=== PATIENT | female | born 1985 | race Caucasian/White ===

== ENCOUNTER 2020-06-03 15:58 | Emergency (ER) | payer OTHER ==
[2020-06-03 16:50] VITALS: BP 129/76; PULSE 70; O2SAT 99
[2020-06-03] MEDS ORDERED: TORAdol 30 mg Injection IM ONE (17:05)
[2020-06-03] MEDS ORDERED: Augmentin 875-125 Tablet PO STA (17:06)
[2020-06-03] MEDS ORDERED: TORAdol 30 mg Injection ONE (17:07)
[2020-06-03] MEDS ORDERED: Augmentin 875-125 Tablet ONE (17:07)
--- NOTE | 2020-06-03 17:13 | ERPHSYRPT ---
- History of Present Illness Time Seen by Provider: 06/03/20 16:50 Source: patient Exam Limitations: no limitations Patient Subjective Stated Complaint: pt states "I have a bad tooth and it is causing me to have a low grade fever and I have a dentist appointment but I just cannot take it anymore" Triage Nursing Assessment: Pt presented alert and oriented X 3, skin wpd pt ambulates with an upright steady gait, able to speak in clear full sentencs pt has lower left molar cavity, slight swelling noted to left lower jaw Physician History: Patient is a 34-year-old female presents to our ED for evaluation of dental pain. Patient has pain at her left back molar. Patient has been experiencing this pain for several days. Pain is getting worse. No trauma no fever. No nausea or vomiting. No headache. Symptoms are mild to moderate in intensity. No specific worsening improving factors. Patient voices no other complaints or concerns at this time. Timing/Duration: yesterday Severity: moderate Modifying Factors: Improves With: other (Patient took a [place] pill today which alleviated her symptoms somewhat.) Associated Symptoms: denies symptoms Allergies/Adverse Reactions: No Known Drug Allergies Allergy (Verified 06/03/20 16:50) Home Medications: Multivitamin [Multi Vitamin Daily] 1 each PO DAILY 03/10/13 [History] Hx Tetanus, Diphtheria Vaccination/Date Given: No Hx Influenza Vaccination/Date Given: No Hx Pneumococcal Vaccination/Date Given: No Immunizations Up to Date: Yes Travel Risk - International Travel Have you traveled outside of the country in past 3 weeks: No - Coronavirus Screening Are you exhibiting any of the following symptoms?: No Close contact with a COVID-19 positive Pt in past 14-21 Days: No - Vaccine Status Have you recieved a Covid-19 vaccination: No - Review of Systems Constitutional: No Symptoms, No Fever, No Chills Eyes: No Symptoms Ears, Nose, & Throat: No Symptoms Respiratory: No Symptoms, No Cough, No Dyspnea Cardiac: No Symptoms, No Chest Pain, No Edema, No Syncope Abdominal/Gastrointestinal: No Symptoms, No Abdominal Pain, No Nausea, No Vomiting, No Diarrhea Genitourinary Symptoms: No Symptoms, No Dysuria Musculoskeletal: No Symptoms, No Back Pain, No Neck Pain Skin: No Symptoms, No Rash Neurological: No Symptoms, No Dizziness, No Focal Weakness, No Sensory Changes Psychological: No Symptoms Endocrine: No Symptoms Hematologic/Lymphatic: No Symptoms Immunological/Allergic: No Symptoms All Other Systems: Reviewed and Negative - Past Medical History Pertinent Past Medical History: Yes Neurological History: No Pertinent History ENT History: No Pertinent History Cardiac History: No Pertinent History Respiratory History: No Pertinent History Endocrine Medical History: No Pertinent History Musculoskeletal History: No Pertinent History GI Medical History: No Pertinent History History: No Pertinent History Psycho-Social History: No Pertinent History Female Reproductive Disorders: No Pertinent History - Past Surgical History Past Surgical History: No Neuro Surgical History: No Pertinent History Cardiac: No Pertinent History Respiratory: No Pertinent History Gastrointestinal: No Pertinent History Genitourinary: No Pertinent History Musculoskeletal: No Pertinent History Female Surgical History: No Pertinent History - Social History Smoking Status: Current every day smoker How long have you smoked: years Exposure to second hand smoke: Yes Drug Use: none Patient Lives Alone: Yes - Female History Hx Last Menstrual Period: 04/09/2020 Hx Now: No - Nursing Vital Signs Nursing Vital Signs: Initial Vital Signs Temperature 97.7 F 06/03/20 16:44 Pulse Rate 70 06/03/20 16:44 Respiratory Rate 18 06/03/20 16:44 Blood Pressure 129/76 06/03/20 16:44 O2 Sat by Pulse Oximetry 99 06/03/20 16:44 Pain Scale Pain Intensity 4 - Physical Exam General Appearance: no apparent distress, alert Eye Exam: PERRL/EOMI, eyes nml inspection Ears, Nose, Throat Exam: normal ENT inspection, TMs normal, pharynx normal, moist mucous membranes, other (Tooth #16 is tender. The adjacent gingiva is irritated and tender as well. It appears as patient experiencing an early abscess. The airway is patent. No airway compromise. Remaining intraoral exam is within normal limits. Uvula midline) Neck Exam: normal inspection, non-tender, supple, full range of motion Respiratory Exam: normal breath sounds, lungs clear, No respiratory distress Cardiovascular Exam: regular rate/rhythm, normal heart sounds, normal peripheral pulses Gastrointestinal/Abdomen Exam: soft, normal bowel sounds, No tenderness, No mass Back Exam: normal inspection, normal range of motion, No CVA tenderness, No vertebral tenderness Extremity Exam: normal inspection, normal range of motion, pelvis stable Neurologic Exam: alert, oriented x 3, cooperative, normal mood/affect, nml cerebellar function, nml station & gait, sensation nml, No motor deficits Skin Exam: normal color, warm, dry, No rash Lymphatic Exam: No adenopathy SpO2 Interpretation: normal SpO2: 99 O2 Delivery: Room Air - Course Nursing assessment & vital signs reviewed: No Ordered Tests: Medication Summary Discontinued Medications Generic Name Dose Route Start Last Admin Trade Name [place] PRN Reason Stop Dose Admin Amoxicillin/Clavulanate Potassium 875 mg 06/03/20 17:06 Augmentin 875-125 Tablet PO 06/03/20 17:07 STAT STA Ketorolac Tromethamine 60 mg 06/03/20 17:05 Toradol 30 Mg Injection IM 06/03/20 17:06 STAT ONE - Progress Progress: improved Progress Note: Patient received a dose of Toradol IM and Augmentin antibiotic orally. Patient improved. Patient currently has an appointment scheduled with her dentist. We will discharge home with a prescription of Toradol and Augmentin. Patient agrees to follow-up with her dentist as scheduled. Patient voices no other complaints concerns at this time. Patient declined a test. Patient states she is "fixed". 06/03/20 17:11 Counseled pt/family regarding: diagnosis, need for follow-up - Departure Departure Disposition: Home Clinical Impression: Pain, dental, Dental abscess Condition: Stable Critical Care Time: No Referrals: JULES JOSE [Primary Care Provider] - Additional Instructions: Discharge/Care Plan GOPI TYLER was seen on 06/03/20 in the Emergency Room. The patient was counseled regarding Diagnosis,Lab results, Imaging studies, need for follow up and when to return to the Emergency Room. Prescriptions given: Discharge Note I have spoken with the patient and/or caregivers. I have explained the patient's condition, diagnosis and treatment plan based on the information available to me at this time. I have answered the patient's and/or caregiver's questions and addressed any concerns. The patient and/or caregivers have as good understanding of the patient's diagnosis, condition and treatment plan as can be expected at this point. The vital signs have been stable. The patient's condition is stable and appropriate for discharge from the emergency department. The patient will pursue further outpatient evaluation with the primary care phys ician or other designated or consulting physician as outlined in the discharge instructions. The patient and/or caregivers are agreeable to this plan of care and follow-up instructions have been explained in detail. The patient and/or caregivers have received these instruction. The patient/and or caregivers are aware that any significant change in condition or worsening of symptoms should prompt an immediate return to this or the closest emergency department or call 911.
== END 2020-06-03 17:26 | disposition home or self-care (01) ==
LOC: ED 15:58
DX: K08.89 Other specified disorders of teeth and supporting structures (principal); K04.7 Periapical abscess without sinus
CPT/HCPCS: 96372; 99283; J1885; A9270-GY

== ENCOUNTER 2020-07-24 04:35 | Emergency (ER) | payer OTHER | END 2020-07-24 04:57 | LOC: ED 04:35 | DX: Z53.9 Procedure and treatment not carried out, unspecified reason (principal) ==

== ENCOUNTER 2024-04-28 15:02 | Emergency (ER) | payer OTHER ==
--- NOTE | 2024-04-28 15:08 | ERPHSYRPT ---
- History of Present Illness Time Seen by Provider: 04/28/24 15:08 Source: patient, family Exam Limitations: no limitations Physician History: This is a 38-year-old white female patient arrives by private vehicle and is a patient Dr. Holden with cough for 2 weeks. She denies chest pain and she denies shortness of breath. Patient's room air oxygen saturation levels 99 to 100%. Patient takes no medications chronically and she has no known drug allergies. The patient is concerned she might have an upper respiratory infection. She has not had a fever. Timing/Duration: week(s) (2) Cough Quality/Degree: mild, productive cough (Yellowish and greenish at times) Possible Cause: occasional episodes Modifying Factors: Improves With: coughing Associated Symptoms: cough, nasal congestion, nasal drainage, wheezing, No fever, No chest pain/soreness, No shortness of breath Allergies/Adverse Reactions: No Known Drug Allergies Allergy (Verified 04/28/24 15:38) Hx Tetanus, Diphtheria Vaccination/Date Given: No Hx Influenza Vaccination/Date Given: No Hx Pneumococcal Vaccination/Date Given: No Travel Risk - International Travel Have you traveled outside of the country in past 3 weeks: No - Emerging Infectious Disease Are you exhibiting symptoms associated with any current EIDs: Yes Symptoms: Cough: New Onset - Review of Systems Constitutional: No Symptoms Eyes: No Symptoms Ears, Nose, & Throat: Nose Congestion, Nose Discharge Respiratory: Cough, No Dyspnea Cardiac: No Chest Pain Abdominal/Gastrointestinal: No Symptoms Genitourinary Symptoms: No Symptoms Musculoskeletal: No Symptoms Skin: No Symptoms Neurological: No Symptoms Psychological: No Symptoms Endocrine: No Symptoms Hematologic/Lymphatic: No Symptoms Immunological/Allergic: No Symptoms All Other Systems: Reviewed and Negative - Past Medical History Neurological History: No Pertinent History Cardiac History: No Pertinent History Respiratory History: No Pertinent History Endocrine Medical History: No Pertinent History Musculoskeletal History: No Pertinent History Other Medical History: PT NOTES TINGLING THAT STARTS IN THE L LE. STANDING UP AND TAKING PRESSURE OFF THE L LE WILL HELP THE PAIN TO GO AWAY. SHE NOTES SOME PAIN IN THE HANDS. - Past Surgical History Past Surgical History: No Neuro Surgical History: No Pertinent History Cardiac: No Pertinent History Respiratory: No Pertinent History Gastrointestinal: No Pertinent History Genitourinary: No Pertinent History Musculoskeletal: No Pertinent History Female Surgical History: No Pertinent History - Social History Smoking Status: Current every day smoker How long have you smoked: years Exposure to second hand smoke: Yes Drug Use: none Patient Lives Alone: Yes - Nursing Vital Signs Nursing Vital Signs: Initial Vital Signs Temperature 96.9 F 04/28/24 15:37 Pulse Rate 110 H 04/28/24 15:37 Respiratory Rate 16 04/28/24 15:37 Blood Pressure 125/85 04/28/24 15:37 O2 Sat by Pulse Oximetry 97 04/28/24 15:37 Pain Scale Pain Intensity 0 - Physical Exam General Appearance: no apparent distress, alert, anxiety Eye Exam: PERRL/EOMI, eyes nml inspection Ears, Nose, Throat Exam: normal ENT inspection, moist mucous membranes Neck Exam: normal inspection, non-tender, supple, full range of motion Respiratory Exam: wheezing (Mild right side expiratory wheezing), No chest tenderness Cardiovascular Exam: normal heart sounds, normal peripheral pulses, tachycardia (Mild) Gastrointestinal/Abdomen Exam: soft, normal bowel sounds, No tenderness Pelvic Exam: not done Rectal Exam: not done Back Exam: normal inspection, normal range of motion, No CVA tenderness, No vertebral tenderness Extremity Exam: normal inspection, normal range of motion, pelvis stable Neurologic Exam: alert, oriented x 3, cooperative, pyroglazer II-XII nml as tested, normal mood/affect, nml cerebellar function, nml station & gait, sensation nml Skin Exam: normal color, warm, dry Lymphatic Exam: No adenopathy SpO2 Interpretation: normal O2 Delivery: Room Air - Course Nursing assessment & vital signs reviewed: Yes Ordered Tests: Medication Summary Discontinued Medications Generic Name Dose Route Start Last Admin Trade Name Jvq PRN Reason Stop Dose Admin Doxycycline Hyclate 100 mg 04/28/24 16:04 Doxycycline Hyclate 100 Mg Tablet PO 04/28/24 16:05 STAT ONE Prednisone 20 mg 04/28/24 16:04 Prednisone 20 Mg Tablet PO 04/28/24 16:05 STAT ONE - Progress Progress: unchanged Air Movement: good Progress Note: 04/28/24 16:11 My medical decision making and the assignment of low complexity to this patient's medical issue today is based on review of the patient's past medical history, review of the patient's medication list, reviewed patient drug allergy list, history present illness and physical findings on examination. The workup in this patient that was offered to her, was chest x-ray, group A strep test and flu swabs. However, we did discuss the option of just treating her symptoms since her symptoms have been persistent for approximately 2 weeks. We would not be treating influenza A or RSV or even COVID in this young healthy patient. Therefore we opted for no workup. We chose this [place] together. Differential diagnosis includes but is not limited to upper respiratory infection, viral illness Counseled pt/family regarding: diagnosis, need for follow-up Medical Desision Making - Diagnostic Testing Diagnostic test were ordered, analyzed, and reviewed by me: No - Risk of complications The pt has a mod risk of morbidity or mortality based on: Need for prescription drug management - Departure Departure Disposition: Home Clinical Impression: Upper respiratory infection Condition: Stable Critical Care Time: No Referrals: JULES HOLDEN [ACTIVE STAFF] - Follow up/PCP as directed Additional Instructions: Drink plenty of clear liquids. Avoid exposure to any type of smoke. Call your primary care provider today, 04/28/2024, to make arrangements for follow-up appointment for further evaluation and management. Prescriptions: Prednisone 10 mg [Deltasone 10 mg] 10 mg PO TID #12 tablet Albuterol 8 gm Mdi Hfa [Ventolin Hfa MDI] 8 gm IH Q4H #1 unit Doxycycline Hyclate 100 mg [Vibramycin 100 MG] 100 mg PO BID #14 tab
[2024-04-28 15:39] VITALS: TEMP 96.9; O2SAT 97
[2024-04-28 16:22] VITALS: RESP 18
[2024-04-28] MEDS ORDERED: DELTASONE 20 MG ONE (16:24)
[2024-04-28] MEDS ORDERED: Vibramycin 100 MG ONE (16:25)
[2024-04-28] MEDS: Vibramycin 100 MG PO ONE (16:28)
[2024-04-28] MEDS: DELTASONE 20 MG PO ONE (16:28)
[2024-04-28 16:58] VITALS: BP 118/82; PULSE 98
== END 2024-04-28 16:59 | disposition home or self-care (01) ==
LOC: ED 15:02
DX: J06.9 Acute upper respiratory infection, unspecified (principal); R05.1 Acute cough; Z79.52 Long term (current) use of systemic steroids; Z79.899 Other long term (current) drug therapy; Z72.0 Tobacco use
CPT/HCPCS: 99282; 99284; A9270-GY